=== PATIENT | female | born 1945 | race Caucasian/White ===

== ENCOUNTER → 2017-05-20 | Outpatient (CLI) | payer MEDICARE, BC | END | disposition home or self-care (01) | LOC: CVU 09:44 | PROVIDERS: ATTEND Internal Medicine Cardiovascular Disease | DX: I37.1 Nonrheumatic pulmonary valve insufficiency (principal); I34.1 Nonrheumatic mitral (valve) prolapse; Q25.6 Stenosis of pulmonary artery; G47.34 Idiopathic sleep related nonobstructive alveolar hypoventilation | CPT/HCPCS: 93017; 93306 ==